=== PATIENT | female | born 1975 | race Caucasian/White ===

== ENCOUNTER 2016-10-20 17:20 | Emergency (ER) | payer MEDICAID, OTHER ==
[~2016-10-20] VITALS: Ht 167.6 cm; Wt 108.0 kg
[2016-10-20] MEDS ORDERED: PENI250T4 PO (17:34)
[2016-10-20] MEDS ORDERED: ATOR10TA84 PO (17:34)
[2016-10-20] MEDS ORDERED: METF500T4 PO (17:34)
[2016-10-20 17:43] VITALS: BP 119/91
[2016-10-20] MEDS ORDERED: DEXAMETHASONE SOD PHOS 4 MG/ML 5 ML VIAL IM ONE (17:45)
[2016-10-20] MEDS ORDERED: IBUPROFEN 100 MG/5 ML SUSPENSION UDCUP PO ONE (17:45)
== END 2016-10-20 18:07 | disposition home or self-care (01) ==
LOC: EMS 17:22
DX: J02.9 Acute pharyngitis, unspecified (principal); E11.9 Type 2 diabetes mellitus without complications; E78.00 Pure hypercholesterolemia, unspecified; F17.210 Nicotine dependence, cigarettes, uncomplicated; Z91.013 Allergy to seafood; Z88.6 Allergy status to analgesic agent
CPT/HCPCS: 82962; 96372; 99283; 99406; J1100

== ENCOUNTER 2016-10-28 17:56 | Emergency (ER) | payer OTHER ==
[~2016-10-28] VITALS: Ht 167.6 cm; Wt 108.2 kg
[~2016-10-28 17:56] MED LIST: ATOR10TA84 PO; METF500T4 PO; PENI250T4 PO
[2016-10-28 18:22] LABS: GLUCOSE,POINT OF CARE 184 MG/DL (70-110)
[2016-10-28] MEDS ORDERED: PERTUSS(ACELL),DIPH,TET VAC/PF 0.5 ML VIAL IM ONE (19:00)
[2016-10-28] MEDS ORDERED: TraMADol HCL 50 MG TABLET PO ONE (19:00)
[2016-10-28] MEDS ORDERED: POVIDONE-IODINE 10% 120 ML SOLUTION TP ONE (19:21)
[2016-10-28 20:30] VITALS: BP 147/95
== END 2016-10-28 20:35 | disposition home or self-care (01) ==
LOC: EMS 17:57
DX: S01.25XA Open bite of nose, initial encounter (principal); E11.9 Type 2 diabetes mellitus without complications; E78.00 Pure hypercholesterolemia, unspecified; F17.210 Nicotine dependence, cigarettes, uncomplicated; Z91.013 Allergy to seafood; Z88.6 Allergy status to analgesic agent; W50.3XXA Accidental bite by another person, initial encounter; Y93.89 Activity, other specified; Y92.89 Other specified places as the place of occurrence of the external cause; Y99.8 Other external cause status
CPT/HCPCS: 82962; 90471; 90715; 99283

== ENCOUNTER 2018-02-03 22:58 | Emergency (ER) | payer OTHER ==
[~2018-02-03] VITALS: Ht 167.6 cm; Wt 108.6 kg
[~2018-02-03 22:58] MED LIST changes: +METF-960 PO; -METF500T4 PO
[2018-02-03 23:23] LABS: GLUCOSE,POINT OF CARE 333 MG/DL (70-110)
[2018-02-03] MEDS ORDERED: MELO-107 PO (23:24)
[2018-02-03] MEDS ORDERED: GABA-531 PO (23:24)
[2018-02-04] MEDS ORDERED: CARISOPRODOL 350 MG TABLET PO ONE (00:30)
[2018-02-04] MEDS ORDERED: KETOROLAC TROMETHAMINE 60 MG/2 ML VIAL IM ONE (00:30)
[2018-02-04 00:56] VITALS: BP 132/80
== END 2018-02-04 01:13 | disposition home or self-care (01) ==
LOC: EMS 23:01
DX: S29.012A Strain of muscle and tendon of back wall of thorax, initial encounter (principal); M54.6 Pain in thoracic spine; E11.9 Type 2 diabetes mellitus without complications; E78.00 Pure hypercholesterolemia, unspecified; F17.210 Nicotine dependence, cigarettes, uncomplicated; Z88.6 Allergy status to analgesic agent; Z91.013 Allergy to seafood; Z79.84 Long term (current) use of oral hypoglycemic drugs; X58.XXXA Exposure to other specified factors, initial encounter; Y93.89 Activity, other specified; Y92.89 Other specified places as the place of occurrence of the external cause; Y99.8 Other external cause status
CPT/HCPCS: 82962; 96372; 99283; J1885